=== PATIENT | male | born 1995 | race American Indian/Alaskan Native ===

== ENCOUNTER 2018-11-10 08:15 | Emergency (ER) | payer OTHER ==
[2018-11-10] MEDS ORDERED: MORPHINE IV ONE ×3 (10:35→17:00)
[2018-11-10] MEDS ORDERED: ZOFRAN IV ONE (10:35)
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
[2018-11-10 11:06] LABS: Basophils # (Auto) 0.1 K/mm3 (0.0-0.1); Basophils % (Auto) 0.4 % (0.0-1.8); Eosinophils % (Auto) 0.1 % (0.0-4.3); Hematocrit 40.6 % (35.5-45.6); Hemoglobin 13.8 gm/dl (11.8-15.2); Lymphocytes # (Auto) 0.8 K/mm3 (1.2-5.4); Lymphocytes % (Auto) 5.3 % (13.4-35.0); Mean Corpuscular HGB Conc 34 % (32-34); Mean Corpuscular Volume 95 fl (84-94); Monocytes % (Auto) 7.1 % (0.0-7.3); Red Blood Count 4.29 M/mm3 (3.65-5.03); Red Cell Distribution Width 13.2 % (13.2-15.2)
[2018-11-10 11:09] LABS: Alanine Aminotransferase 24 units/L (7-56); Albumin 4.3 g/dL (3.9-5); BUN/Creatinine Ratio 12; Blood Urea Nitrogen 6 mg/dL (9-20); Calcium 9.4 mg/dL (8.4-10.2); Hemolysis Index 28
[2018-11-10 12:53] LABS: Platelet Count 223 K/mm3 (140-440)
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
[2018-11-10] MEDS ORDERED: LACTATED RINGERS 1,000 ML IV SCH (16:00)
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
[2018-11-10 16:49] VITALS: BP 128/72
[2018-11-10] MEDS ORDERED: MORPHINE ONE (17:04)
== END 2018-11-10 17:31 | disposition other institution (70) ==
LOC: EDSEX → ED 08:15
DX: S22.31XA Fracture of one rib, right side, initial encounter for closed fracture (principal); S36.509A Unspecified injury of unspecified part of colon, initial encounter; S09.90XA Unspecified injury of head, initial encounter; S30.1XXA Contusion of abdominal wall, initial encounter; M54.2 Cervicalgia; F17.200 Nicotine dependence, unspecified, uncomplicated; V49.59XA Passenger injured in collision with other motor vehicles in traffic accident, initial encounter; Y93.89 Activity, other specified; Y92.488 Other paved roadways as the place of occurrence of the external cause; Y99.8 Other external cause status
CPT/HCPCS: 36415; 70450; 71260; 72125; 72128; 72131; 74177; 80053; 83690; 85025; 96374; 96375; 96376; 99291; J2270; J2405; J7120; Q9967